=== PATIENT | male | born 1945 | race Hispanic/Latino ===

== ENCOUNTER → 2018-08-14 | Outpatient (CLI) | payer MEDICARE | END | disposition home or self-care (01) | LOC: SHCH 08:53 | PROVIDERS: ATTEND Internal Medicine Cardiovascular Disease | DX: I34.0 Nonrheumatic mitral (valve) insufficiency (principal) | CPT/HCPCS: 93306 ==

== ENCOUNTER → 2018-08-18 | Outpatient (CLI) | payer MEDICARE ==
[~2018-08-18] VITALS: Ht 167.6 cm; Wt 64.9 kg
[~2018-08-18] MED LIST: REGADENOSON 0.4 MG/5 ML PF SYG IVP SCH
== END | disposition home or self-care (01) ==
LOC: SHCH 08:02
PROVIDERS: ATTEND Internal Medicine Cardiovascular Disease
DX: R07.9 Chest pain, unspecified (principal); R06.00 Dyspnea, unspecified
CPT/HCPCS: 78452; 93017; 96374; A9500 ×2; J2785

== ENCOUNTER → 2018-11-19 | Outpatient (CLI) | payer MEDICARE ==
--- NOTE | 2018-11-19 11:00 | NUR ---
MBSS COMPLETED. SHALLOW PENETRATION WITH LARGE CUP SIP OF THIN LIQUIDS. RECOMMEND REGULAR TEXTURE, THIN LIQUIDS; PILLS WHOLE WITH LIQUIDS. RECOMMENDATIONS: 1. GI CONSULT. PLEASE CONSIDER UPPER GI SERIES Addendum: 11/19/18 at 1403 by TICO ASH, [facility] Amended: Links added.
== END | disposition home or self-care (01) ==
LOC: RAH 10:26
PROVIDERS: ATTEND Internal Medicine Gastroenterology
DX: R93.3 Abnormal findings on diagnostic imaging of other parts of digestive tract (principal); R13.12 Dysphagia, oropharyngeal phase; R63.3 Feeding difficulties
CPT/HCPCS: 74230; 92611

== ENCOUNTER → 2021-11-07 | Outpatient (CLI) | payer MEDICARE | END | disposition home or self-care (01) | LOC: RAH 09:47 | PROVIDERS: ATTEND Internal Medicine Gastroenterology | DX: R93.3 Abnormal findings on diagnostic imaging of other parts of digestive tract (principal); R13.12 Dysphagia, oropharyngeal phase | CPT/HCPCS: 74230; 92610 ==

== ENCOUNTER → 2023-03-13 | Outpatient (CLI) | payer OTHER, MEDICARE | END | disposition home or self-care (01) | LOC: RAH 07:03 | PROVIDERS: ATTEND Internal Medicine Gastroenterology | DX: R10.13 Epigastric pain (principal); R14.0 Abdominal distension (gaseous); R11.2 Nausea with vomiting, unspecified | CPT/HCPCS: 78264; A9541 ==

== ENCOUNTER → 2024-03-24 | Outpatient (CLI) | payer OTHER, MEDICARE ==
--- NOTE | 2024-03-24 16:41 | HMCIMG ---
MR SPINAL CANAL, THORAC WO CON HISTORY: Wedge compression fracture of T5 and T6 COMPARISON: None TECHNIQUE: MRI of the thoracic spine was performed utilizing multiple pulse sequences in axial, coronal and sagittal plane. Patient was not given contrast through intravenous route. FINDINGS: No abnormal signal intensity is seen of the visualized bony structure. Mild compression fracture is seen of T6 with 20% loss of height. Degenerative disc signals are present at all thoracic spine levels. The thoracic cord is of normal signal intensity without cord compression or impingement. IMPRESSION: 1. Mild compression fracture involving T6 with 20% loss of height. No bony edema is seen.
== END | disposition home or self-care (01) ==
LOC: RAH 12:32
PROVIDERS: ATTEND Internal Medicine
DX: S22.050A Wedge compression fracture of T5-T6 vertebra, initial encounter for closed fracture (principal); S22.089A Unspecified fracture of T11-T12 vertebra, initial encounter for closed fracture; M51.34 Other intervertebral disc degeneration, thoracic region; M81.0 Age-related osteoporosis without current pathological fracture; X58.XXXA Exposure to other specified factors, initial encounter; Y93.89 Activity, other specified; Y92.89 Other specified places as the place of occurrence of the external cause; Y99.8 Other external cause status
CPT/HCPCS: 72146

== ENCOUNTER 2024-09-12 18:07 | Observation (INO) | payer OTHER, MEDICARE ==
[~2024-09-12] VITALS: Ht 167.6 cm; Wt 60.9 kg
--- NOTE | 2024-09-12 18:11 | NUR ---
UA CUP PROVIDED
--- NOTE | 2024-09-12 18:16 | NUR ---
UA COLLECTED AND SENT
[2024-09-12 18:30] LABS: APPEARANCE,URINE CLEAR (CLEAR); GLUCOSE, URINE (UA) NEGATIVE (NEGATIVE); LEUKOCYTE ESTERASE ,URINE NEGATIVE Leu/uL (NEGATIVE); NITRATE,URINE 1+ (NEGATIVE); OCCULT BLOOD,URINE +- (TRACE) (NEGATIVE)
[2024-09-12 18:31] LABS: ADD UA MICROSCOPIC YES
[2024-09-12 18:39] LABS: SQUAMOUS EPITHELIAL CELL,UR RARE /HPF (0-2)
[2024-09-12 20:12] LABS: IMMATURE GRANULOCYTE ABSOLUTE 0.02 K/uL (0-1); NUCLEATED RED BLOOD CELLS 0.0 % (0.0-0.19); PLATELET COUNT (AUTO) 158 K/uL (130-400); RED BLOOD CELL COUNT(AUTO) 3.48 MIL/uL (4.00-5.50); RED CELL DISTRIBUTION WIDTH 12.8 % (11.0-15.5); WHITE BLOOD COUNT (AUTO) 4.8 K/uL (4.8-10.8)
[2024-09-12 20:33] LABS: CREATININE 0.6 mg/dL (0.5-1.0); GLOMERULAR FILTR. RATE CALC 91.0 mL/min (>90); GLUCOSE,RANDOM 93.0 mg/dL (70-105); SODIUM SERUM 140.0 mmol/L (136-145); UREA NITROGEN, BLOOD 9.0 mg/dL (7-18)
--- NOTE | 2024-09-12 21:19 | ERN ---
General Chief Complaint: Urinary Frequency Stated Complaint: SUPRAPUBIC PAIN Time Seen by MD: 18:09 Time Seen by Midlevel: 18:09 Source: patient History of Present Illness Initial Comments The patient is an 79-year-old female presenting to the emergency department for evaluation of suprapubic abdominal pain and dysuria that has been ongoing for several days. The patient is currently being treated for a urinary tract infection by her primary care doctor. She has already gone through to oral antibiotics along with fluconazole with little to no improvement. She specifically denies any fever, chills, or any other symptoms at this time. Allergies: Coded Allergies: No Known Drug Allergies (Unverified Allergy, Unknown, 08/17/18) Past Medical History Past Medical History: High Cholesterol, Hypertension, UTI Past Surgical History: Appendectomy, Hysterectomy ROS Dictation CONSTITUTIONAL: Negative except for HPI HEAD/FACE: Negative except for HPI EENT: Negative except for HPI RESPIRATORY: Negative except for HPI GASTROINTESTINAL/ABDOMINAL: Negative except for HPI GENITOURINARY: Negative except for HPI MUSCULOSKELETAL: Negative except for HPI INTEGUMENTARY: Negative except for HPI NEUROLOGICAL/PSYCH: Negative except for HPI HEMATOLOGIC/LYMPHATIC: Negative except for HPI All Systems Negative, Except as noted above. 13 point review of systems assessed and all negative except for above. Physical Exam Physical Exam Dictation Vital Signs reviewed General Appearance: Alert, oriented x 3, no acute distress, well developed, nourished. Head and Face: non-traumatic. Eyes: PERRL, pink conjunctivas, eyelid no trauma, anterior chamber with arcus senilis. Ears: Pinnas intact and no signs of trauma or erythema ear canals clear and no discharge TM no erythema Nose: No discharge, no bleeding. Oropharynx: Mouth normal, tongue pink, pharynx clear,no erythema, tonsils no exudates, no abscesses noted, mucous membrane moist Neck: Supple, non-tender, no thyromegaly, no masses, no JVD, no bruits Breast:Deferred Chest:No tenderness, no crepitus, no paradoxical movement, no retractions Lungs:Clear, well-ventilated, symmetric, no rales, no wheezing, no rhonchi, no stridor, good breath sounds bilaterally Heart: Regular rate, regular rhythm, no murmur, no gallops Vascular: no peripheral edema, Abdomen: Soft, positive bowel sounds, nondistended, no guarding, nontender, no rebound, no masses no hepatomegaly, no splenomegaly, no Hartley's sign, no hernias. Rectal: Deferred Genital: Deferred Neurological: Normal speech, motor function intact, sensory function intact Musculoskeletal: Neck nontender, full range of motion, back nontender, full range of motion, Extremities: nontender, full range of motion Skin: Color pink, dry, no turgor, no rash, no lacerations, no abrasions, no contusions. Lymphatic: Deferred Results Laboratory and Microbiology Lab and Micro Result Laboratory Tests Test 09/12/24 18:15 09/12/24 19:33 Urine Color DARK-YELLOW (YELLOW) Urine Appearance CLEAR (CLEAR) Urine pH 6.5 (5.0-8.0) Urine Specific [place] 1.010 (1.001-1.031) Urine Protein NEGATIVE mg/dL (NEGATIVE) Urine Glucose (UA) NEGATIVE mg/dL (NEGATIVE) Urine Ketones NEGATIVE mg/dL (NEGATIVE) Urine Occult Blood +- (TRACE) (NEGATIVE) H Urine Nitrate 1+ (NEGATIVE) H Urine Bilirubin 0.5 mg/dL (NEGATIVE) H Urine Urobilinogen 2.0 mg/dL (0.2-1.0) H Urine Leukocyte Esterase NEGATIVE Jeffrey/uL Urine RBC 2-5 /HPF (0-1) H Urine WBC 2-5 /HPF (0-1) H Urine Squamous Epithelial Cells RARE /HPF (0-2) Urine Bacteria None /HPF (None Seen) White Blood Count 4.8 K/uL (4.8-10.8) Red Blood Count 3.48 MIL/uL (4.00-5.50) L Hemoglobin 11.7 g/dL (12.0-16.0) L Hematocrit 32.9 % (36-48) L Mean Corpuscular Volume 94.5 fL (79-99) Mean Corpuscular Hemoglobin 33.6 pg (27.0-33.0) H Mean Corpuscular Hemoglobin Concent 35.6 g/dL (32.0-36.0) Red Cell Distribution Width 12.8 % (11.0-15.5) Platelet Count 158 K/uL (130-400) Mean Platelet Volume 10.2 fL (7.5-10.5) Immature Granulocyte % (Auto) 0.4 % (0-1) Neutrophils (%) (Auto) 66.4 % (40.0-77.0) Lymphocytes (%) (Auto) 21.7 % (21.0-51.0) Monocytes (%) (Auto) 10.7 % (3.0-13.0) Eosinophils (%) (Auto) 0.6 % (0.0-8.0) Basophils (%) (Auto) 0.2 % (0.0-5.0) Neutrophils # (Auto) 3.2 K/uL (1.8-7.7) Lymphocytes # (Auto) 1.0 K/uL (1.0-4.8) Monocytes # (Auto) 0.5 K/uL (0.1-1.0) Eosinophils # (Auto) 0.03 K/uL (0.00-0.70) Basophils # (Auto) 0.01 K/uL (0.00-0.20) Absolute Immature Granulocyte (auto 0.02 K/uL (0-1) Nucleated Red Blood Cells 0.0 % (0.0-0.19) Sodium Level 140 mmol/L (136-145) Potassium Level 3.9 mmol/L (3.5-5.1) Chloride Level 103 mmol/L (101-111) Carbon Dioxide Level 30 mmol/L (21-32) Blood Urea Nitrogen 9 mg/dL (7-18) Creatinine 0.6 mg/dL (0.5-1.0) Glomerular Filtration Rate Calc 91 mL/min (>90) Random Glucose 93 mg/dL (70-105) Lactic Acid Level 1.0 mmol/L (0.8-2.5) Total Calcium 8.8 mg/dL (8.5-10.1) Labs Reviewed?: Yes MDM MDM: Differential diagnosis: Complicated urinary tract infection, Precious infection, dysuria Rationale: Tests considered and ordered secondary to shared decision making include: Previous outside records reviewed: Old ER visits. Risk of complication and/or morbidity or mortality of patient management: None Medications-Per medication reconciliation Need for hospitalization: Patient does meet criteria for hospitalization. Need for emergency major/minor surgery: No There are no social concerns with this patient. Prescription drug management Prescriptions will include symptomatic care Patient's prior external medical records from other ER visits were reviewed by me as indicated. Prior testing and results from previous visits were reviewed. Prior tests were taken into account with medical decision making and resource utilization, independent historian/historians were used to obtain complete medical history. I independently interpreted the test that were performed, results were reviewed by me and considered findings on radiology if ordered. Medical management and examination interpretation discussions were had by me with other qualified healthcare professionals as indicated for the patient's care. ED Course Orders Procedure Category Date Status Time Urinalysis Profile LAB 09/12/24 Complete 18:09 Culture Urine CHRISTIE 09/12/24 Logged 18:31 Cbc With Differential LAB 09/12/24 Complete 19:43 Basic Metabolic Panel LAB 09/12/24 Complete 19:43 Lactic Acid LAB 09/12/24 Complete 19:43 Ceftriaxone 1g Vial PHA 09/12/24 In Process (Rocephine 1g Inj) 21:30 Ct Abdomen/Pelvis W/O CT 09/12/24 Logged Contrast 21:11 Current Medications Medications (Trade) Dose Ordered Sig/[place] Route PRN Reason Start Time Stop Time Status Last Admin Dose Admin Ceftriaxone Sodium (ROCEphine 1G INJ) 1 gm ONCE ONCE IVPB 09/12/24 21:30 09/12/24 21:31 UNV Vital Signs Date Time Temp Pulse Resp B/P (MAP) Pulse Ox O2 Delivery O2 Flow Rate FiO2 09/12/24 19:19 97.5 48 16 158/68 98 Room Air* 0 21 09/12/24 18:08 97.2 72 16 154/46 98 Room Air DX & DISP Disposition: Inpatient Departure Impression: Primary Impression: Complicated urinary tract infection Condition: Stable Referrals: RENITA ESCALERA MD (PCP) I have reviewed the case, and I agree with, Diagnosis and Plan I performed the substantive portion of the visit. I have reviewed and personally made and approve the management plan that is documented in the note by myself or the ANDRÉS. I acknowledge for responsibility for the patient's management plan. KARLA UREÑA Sep 12, 2024 21:19
[2024-09-12] MEDS: 0.9%NACL 1000ML 1,000 ML IV SCH (21:28)
[2024-09-12] MEDS: ZOSYN 3.375GM +NS 50ML IV SCH (21:28)
[2024-09-12] MEDS ORDERED: VANCOMYCIN PROTOCOL PER PHARMACY IV SCH (21:30)
[2024-09-12] MEDS: VANCOMYCIN KIT 1 GM/250 ML IV.KIT IV ONE (21:42)
--- NOTE | 2024-09-12 21:48 | NUR ---
SON TO BRING HOME MEDICATIONS
--- NOTE | 2024-09-12 21:52 | NUR ---
1ST ATTEMPT TO CALL REPORT NO ANSWER AT THIS TIME
--- NOTE | 2024-09-12 22:00 | NUR ---
SPOKE WITH ADAM NURSE ON [address] RD FLOOR CURRENT PASSING MEDICATIONS WILL CALL BACK WHEN COMPLETED
--- NOTE | 2024-09-12 22:19 | NUR ---
RECEIVED REPORT FROM [facility] ED NURSE. AWAITING PATIENT ARRIVAL TO UNIT.
[2024-09-12 22:35] VITALS: BP 160/64; PULSE 48; RESP 20; TEMP 97.9
--- NOTE | 2024-09-12 22:35 | NUR ---
PATIENT ARRIVED TO UNIT VIA STRETCHER, SELF TRANSFERED TO BED. TOLERATED WELL, EDUCATED ON SAFETY PRECAUTIONS,CALL BOATENG AND PLAN OF CARE.
[2024-09-12 22:41] VITALS: O2SAT 100
[2024-09-12] MEDS ORDERED: LISI10TA24 PO (23:04)
[2024-09-12] MEDS ORDERED: ROSU10TA72 PO (23:19)
[2024-09-12] MEDS ORDERED: SUCR1TAB2 PO (23:19)
[2024-09-12] MEDS ORDERED: ESOM20VI PO (23:25)
[2024-09-12] MEDS ORDERED: PROP10TA10 PO (23:25)
--- NOTE | 2024-09-12 23:31 | HMCIMG ---
EXAM: CT Abdomen and Pelvis without IV contrast. CLINICAL HISTORY: Suprapubic abdominal pain. TECHNIQUE: Thin collimated axial CT images of the abdomen and pelvis were obtained, with sagittal and coronal reformatted images also submitted. A CT scan is done according to ALARA (As Low As Reasonably Achievable). CONTRAST: None. COMPARISON: None. FINDINGS: Unremarkable visualized lung parenchyma. No focal abnormality within the liver, gallbladder, pancreas, spleen, adrenals, or kidneys. Mild large bowel diverticulosis with no acute diverticulitis. Large bowel loops are filled with fecal matter, a component of constipation. There is no obvious bowel wall thickening. Bowel loops are normal in caliber without evidence of obstruction or ileus. No acute appendicitis. There is no abnormality within the urinary bladder. Status post hysterectomy. The bilateral ovaries are not visualized, likely surgically absent. No lymphadenopathy. No free fluid. Mild calcific atherosclerotic disease in the abdominal aorta and its branches. Small left inguinal hernia containing fat. There is no acute osseous abnormality. Multilevel thoracolumbar spondylosis. IMPRESSIONS: No acute process in the abdomen or pelvis. Mild large bowel diverticulosis with no acute diverticulitis. Large bowel loops are filled with fecal matter, a component of constipation. Small left inguinal hernia containing fat. Multilevel thoracolumbar spondylosis. /Gabi
[2024-09-12] MEDS ORDERED: LEVO88CA5 PO (23:32)
[2024-09-12] MEDS ORDERED: FLUO20TA29 PO (23:32)
[2024-09-12] MEDS ORDERED: QUET25TA36 PO (23:32)
[2024-09-12] MEDS ORDERED: ALPR-409 PO (23:32)
[2024-09-12] MEDS ORDERED: PHEN-948 PO (23:40)
[2024-09-12] MEDS ORDERED: PRIM50TA23 PO (23:40)
--- NOTE | 2024-09-12 23:48 | NUR ---
PATIENT WITH HR OF 40-46 BPM AT REST, NOTIFIED DR.MOVVA WARD FOR . NEW ORDER OBTAINED FOR TELEMONITORING AND RESUME HOME MEDICATIONS.
[2024-09-13] MEDS ORDERED: PHENAZOpyridine HCL 200 MG TAB 200 MG TABLET PO PRN
[2024-09-13] MEDS: LISINOPRIL 10 MG TABLET PO SCH (00:05)
[2024-09-13 04:00] VITALS: BP 138/57; PULSE 48; RESP 20; TEMP 98
[2024-09-13 04:51] LABS: IMMATURE GRANULOCYTE ABSOLUTE 0.02 K/uL (0-1); NUCLEATED RED BLOOD CELLS 0.0 % (0.0-0.19); PLATELET COUNT (AUTO) 125 K/uL (130-400); RED BLOOD CELL COUNT(AUTO) 3.27 MIL/uL (4.00-5.50); RED CELL DISTRIBUTION WIDTH 12.6 % (11.0-15.5); WHITE BLOOD COUNT (AUTO) 3.8 K/uL (4.8-10.8)
[2024-09-13 05:12] LABS: CREATININE 0.6 mg/dL (0.5-1.0); GLOMERULAR FILTR. RATE CALC 91.0 mL/min (>90); GLUCOSE,RANDOM 90.0 mg/dL (70-105); SODIUM SERUM 143.0 mmol/L (136-145); UREA NITROGEN, BLOOD 6.0 mg/dL (7-18)
[2024-09-13 07:43] VITALS: BP 144/63; PULSE 50; RESP 17; TEMP 97.7
[2024-09-13 08:00] VITALS: O2SAT 98
[2024-09-13] MEDS: SUCRALFATE 1 GM TABLET PO SCH (08:26)
[2024-09-13] MEDS: VANCOMYCIN 1G/250ML KIT 250 ML IV SCH (09:38)
[2024-09-13 12:00] VITALS: BP 135/71; PULSE 50; RESP 18; TEMP 97.5
--- NOTE | 2024-09-13 14:19 | NUR ---
DCP: HOME Pt currently lives alone in her home. Pt states that at home she has a walker, bedside commode, and cane. Pt does not have home health or provider services. Pt states that she has been able to complete ADL independently. PCP is Dr. Rawls and uses [facility] for any RX needs. At DC pt will want to go home and family can assist with transportation. Addendum: 09/13/24 at 1421 by KARELY MURO SS Amended: Links added.
[2024-09-13 16:00] VITALS: BP 154/62; PULSE 48; RESP 18; TEMP 97.7
--- NOTE | 2024-09-13 17:06 | CONS ---
[facility] CARDIOLOGY CONSULTATION NOTE Date Patient Seen: Sep 13, 2024 Time of Visit: 17:01 Reason for Consultation: [Bradycardia ] History of Present Illness: [79-year-old female patient the previously followed [facility] with Dr. Rodriguez with a past medical history of hypertension, hyperlipidemia, recurrent UTIs, who presents to emergency department endorsing suprapubic abdominal pain dysuria, the patient being treated currently for UTI by her primary care physician. Creatinine 0.6, potassium 4.1, on admission presenting heart rate averaging 40-50s, review of current telemetry sinus rhythm with bradycardia in the 50s, no events overnight. Upon our assessment the patient denies any chest pain, palpitations, dyspnea or any other anginal equivalents. The patient has a prior 2D echocardiogram from 2020 with the ejection fraction of 60%, with no wall motion valvular management at this time we will recommend avoiding AV alvaro blocking agents. Cardiology was consulted for bradycardia] Past Medical History: [ Refer to chart] Past Surgical History: [ Refer to HPI] Family History: [Refer to HPI ] Social History: [Refer to HPI ] Habits: [Never] smoker. [Denies] alcohol consumption. [Denies] illicit drug use Review of Systems: A review of12 point systems was negative set per HPI Physical Examination: GENERAL: [No acute distress.] HEAD: [Normal with no signs of head trauma.] EYES: [PERRLA, EOMI, conjunctiva and sclera normal.] ENT: [Hearing grossly intact, normal oropharynx.] NECK: [Supple without JVD. There is no tenderness, lymphadenopathy, or masses. No thyromegaly. Normal carotid upstrokes without bruits.] LUNGS: [Clear breath sounds bilaterally. No wheezes, or rhonchi.] HEART: Bradycardic Normal S1 and S2 without mumurs, gallop or rub.] VASC: [Peripheral pulses +2 bilaterally.] ABD: [Bowel sounds normal, soft, nontender, no masses, no organomegaly. No audible bruits.] : [Not examined] LYMPH: [No lymphadenopathy noted.] EXT: [No clubbing, cyanosis or edema.] SKIN: [No rashes or lesions noted.] NEURO: [Awake, alert, and oriented x3. No focal sensory or strength deficits noted.] Vital Signs (last 8hr) Date Time Temp Pulse Resp B/P (MAP) Pulse Ox O2 Delivery O2 Flow Rate FiO2 09/13/24 16:00 97.7 48 18 154/62 98 Room Air 21 09/13/24 12:00 97.5 50 18 135/71 98 Room Air 21 Laboratory: [ ] Hematology Labs: Test 09/13/24 04:26 Range/Units White Blood Count 3.8 L 4.8-10.8 K/uL Red Blood Count 3.27 L 4.00-5.50 MIL/uL Hemoglobin 11.0 L 12.0-16.0 g/dL Hematocrit 31.2 L 36-48 % Mean Corpuscular Volume 95.4 79-99 fL Mean Corpuscular Hemoglobin 33.6 H 27.0-33.0 pg Mean Corpuscular Hemoglobin Concent 35.3 32.0-36.0 g/dL Red Cell Distribution Width 12.6 11.0-15.5 % Platelet Count 125 L 130-400 K/uL Mean Platelet Volume 10.0 7.5-10.5 fL Immature Granulocyte % (Auto) 0.5 0-1 % Neutrophils (%) (Auto) 56.8 40.0-77.0 % Lymphocytes (%) (Auto) 27.9 21.0-51.0 % Monocytes (%) (Auto) 13.2 H 3.0-13.0 % Eosinophils (%) (Auto) 1.3 0.0-8.0 % Basophils (%) (Auto) 0.3 0.0-5.0 % Neutrophils # (Auto) 2.2 1.8-7.7 K/uL Lymphocytes # (Auto) 1.1 1.0-4.8 K/uL Monocytes # (Auto) 0.5 0.1-1.0 K/uL Eosinophils # (Auto) 0.05 0.00-0.70 K/uL Basophils # (Auto) 0.01 0.00-0.20 K/uL Absolute Immature Granulocyte (auto 0.02 0-1 K/uL Nucleated Red Blood Cells 0.0 0.0-0.19 % Chemistry Labs: Test 09/13/24 04:26 09/12/24 19:33 Range/Units Sodium Level 143 136-145 mmol/L Potassium Level 4.1 3.5-5.1 mmol/L Chloride Level 109 101-111 mmol/L Carbon Dioxide Level 28 21-32 mmol/L Blood Urea Nitrogen 6 L 7-18 mg/dL Creatinine 0.6 0.5-1.0 mg/dL Glomerular Filtration Rate Calc 91 >90 mL/min Random Glucose 90 70-105 mg/dL Total Calcium 8.9 8.5-10.1 mg/dL Magnesium Level 1.90 1.80-2.40 mg/dL Lactic Acid Level 1.0 0.8-2.5 mmol/L Diagnostics / Radiology: [Copy/Paste Echos/Imaging Report here] Assessment: [Hypertension Hyperlipidemia ] Plan: [#asymptomatic bradycardia The patient presented to the emergency department endorsing abdominal pain suprapubic, dysuria History of recurrent UTIs currently under antibiotic treatment per primary care physician Initial assessment showed a heart rate in 40-50s, review of telemetry sinus bradycardia in the 50s Prior 2D echo 2020 EF 60%, no wall motion or valvular abnormalities Currently the patient denies any cardiac symptoms or anginal equivalents Recommend avoiding beta-blockers or any other alvaro blocking agents at the moment We will plan for an outpatient event monitor once her UTI has a resolved. Thank you for this consult cardiology will sign off at this time the patient will follow up in clinic 1-2 weeks after discharge Dylan robin MD] ATTESTATION BY PHYSICIAN I have seen and examined the patient, reviewed the above documentation, participated in medical decision making, made necessary modifications, and agree with the treatment plan as documented by my mid-level provider above. MD MANOJ Womack JAMES R MD Sep 13, 2024 17:05
--- NOTE | 2024-09-13 18:09 | NUR ---
PATIENT DISCHARGED. IV REMOVED INTACT. TELEMONITOR REMOVED. ALL BELONGINGS GATHERED AND TAKEN BY PATIENT. ALL QUESTIONS AND CONCERNS ANSWERED. PATIENT TAKEN DOWN VIA WHEELCHAIR ALERT AND ORIENTED X 4.
--- NOTE | 2024-09-13 19:43 | HP ---
ADMITTING HISTORY AND PHYSICAL CHIEF COMPLAINT: Lower abdominal pain, recurrent urinary tract infection, failed outpatient treatment. HISTORY OF PRESENT ILLNESS: An 79-year-old female who was brought to the Emergency Room with history of lower abdominal pain and the patient has multiple urinary tract infections. The patient was treated with multiple antibiotics as an outpatient x 4 at least and the patient has significant symptoms and the patient still has urinary symptoms. The patient was hospitalized with acute urinary tract infection with IV antibiotics and urine cultures. The patient has some nausea, which is improved. The patient denies any fever or chills at this time. PAST MEDICAL HISTORY: Significant for hypertension, hyperlipidemia, urinary tract infection. MEDICATIONS: Not available at this time. ALLERGIES: None. PAST SURGICAL HISTORY: Hysterectomy and appendectomy. SOCIAL HISTORY: Denies history of smoking, alcohol or substances. FAMILY HISTORY: Noncontributory. REVIEW OF SYSTEMS: HEENT: Negative. CARDIOVASCULAR SYSTEM: Denies chest pain. RESPIRATORY SYSTEMS: Denies shortness of breath. GASTROINTESTINAL: Nausea, lower abdominal pain. GENITOURINARY SYSTEM: Urinary complaints. MUSCULOSKELETAL SYSTEM: No joint pains. PHYSICAL EXAMINATION: GENERAL: The patient is awake, alert, and oriented to person, place and time. HEENT: Pupil equal. Mucous membranes appears to be dry. NECK: Supple. LUNGS: Mostly decreased breath sounds. No wheezes, no rhonchi. HEART: Regular rate and rhythm. ABDOMEN: Soft and nontender. NEUROLOGICAL: No focal deficits. LABORATORY DATA: Urinalysis shows nitrates positive. Leukocyte esterase is negative. RBC 2 to 5, WBC 2 to 5, creatinine 0.6, sodium is 140, potassium 3.9, lactic acid level 1.0. ASSESSMENT AND PLAN: Lower abdominal pain, urinary tract infection, which is a recurrent nature. The patient is going to get CT of the abdomen and pelvis to see any localized focus for her recurrent urinary infection. Labs are stable at this time. Hypertension is stable. Hyperlipidemia is stable. Continue with present care. TID: [id number] RECEIPT: [id number]
--- NOTE | 2024-09-13 21:42 | DS ---
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 SERVICER(S): [cardiology] PROCEDURE(S)/TREATMENT(S): [] PROBLEM(S): [] FOLLOW-UP TEST(S): [f/u w urology] DISCHARGE INSTRUCTIONS: [f/u w pcp in 1-2 days] Home Meds Reported Medications Primidone (Mysoline) 50 Mg Tablet, 50 MG PO DAILY 09/12/24 Phenazopyridine HCl (Phenazopyridine HCl) 200 Mg Tablet, 1 TAB PO TID PRN for PAIN 09/12/24 Quetiapine Fumarate (Quetiapine Fumarate) 25 Mg Tablet, 1 TAB PO HS for 30 Days, #30 TAB 0 Refills 09/12/24 Levothyroxine Sodium (Levothyroxine) 88 Mcg Capsule, 1 CAP PO DAILY for 30 Days, #30 CAP 0 Refills 09/12/24 Alprazolam (Alprazolam) 0.25 Mg Tab.rapdis, 0.25 MG PO BID PRN for ANXIETY, TAB 09/12/24 Fluoxetine HCl (Fluoxetine HCl) 20 Mg Tablet, 1 TAB PO DAILY for 30 Days, #30 TAB 0 Refills 09/12/24 Propranolol HCl (Propranolol HCl) 10 Mg Tablet, 1 TAB PO BID PRN for ANXIETY for 30 Days, #60 TAB 0 Refills 09/12/24 Esomeprazole Sodium (Esomeprazole Sodium) 20 Mg Vial, 20 MG PO DAILY, VIAL 09/12/24 Sucralfate (Sucralfate) 1 Gram Tablet, 1 TAB PO TID for 30 Days, #90 TAB 0 Refills 09/12/24 Rosuvastatin Calcium (Rosuvastatin Calcium) 10 Mg Tablet, 1 TAB PO HS for 30 Days, #30 TAB 0 Refills 09/12/24 Lisinopril (Lisinopril) 10 Mg Tablet, 10 MG PO DAILY, TAB 09/12/24 RENITA ESCALERA MD Sep 13, 2024 21:42
--- NOTE | 2024-09-14 00:35 | PN ---
SUBJECTIVE: The patient denies any chest pain, abdominal pain, nausea or vomiting. At this time, the patient ____ antibiotics pending a CT scan. OBJECTIVE: VITAL SIGNS: Blood pressure 120/60, pulse 60, respirations 14. LUNGS: Mostly decreased breath sounds. No wheezes or rhonchi. HEART: Regular rate and rhythm. ABDOMEN: Soft, nontender. ASSESSMENT AND PLAN: * Lower abdominal pain, which appears to be resolved. * Urinary tract infection, stable. * Pending a CT scan report. * Hypertension, stable and patient's care will be transferred to Dr. Rawls. TID: [id number] RECEIPT: [id number]
== END 2024-09-13 18:27 | disposition home or self-care (01) ==
LOC: EDSEX 18:07 → EDH 18:07 → EDHIP 21:13 → 3AH 22:35
PROVIDERS: ADMIT Family Medicine; ATTEND Family Medicine
DX: N39.0 Urinary tract infection, site not specified (principal); R10.2 Pelvic and perineal pain; R00.1 Bradycardia, unspecified; R11.0 Nausea; E78.00 Pure hypercholesterolemia, unspecified; F19.90 Other psychoactive substance use, unspecified, uncomplicated; I10 Essential (primary) hypertension; Z90.49 Acquired absence of other specified parts of digestive tract; Z90.710 Acquired absence of both cervix and uterus; Z79.899 Other long term (current) drug therapy
CPT/HCPCS: 96376; 96365; 96375; 99285; 80048 ×2; 85025 ×2; 87040 ×2; 87086; 83605; 81001; 36415 ×2; 74176; 96366; 96367; 83735; J7030; J0696; J2543 ×3; J3373 ×2; G0378 ×11

== ENCOUNTER → 2024-12-17 | Outpatient (CLI) | payer OTHER, MEDICARE ==
[~2024-12-17] MED LIST changes: +ALPR-409 PO; +ESOM20VI PO; +FLUO20TA29 PO; +LEVO88CA5 PO; +LISI10TA24 PO; +PHEN-948 PO; +PRIM50TA23 PO; +PROP10TA10 PO; +QUET25TA36 PO; -REGADENOSON 0.4 MG/5 ML PF SYG IVP SCH; +ROSU10TA98 PO; +SUCR1TAB2 PO
--- NOTE | 2024-12-18 08:13 | HMCIMG ---
EXAM: Ultrasound Retroperitoneum ??? Renal CLINICAL HISTORY: Other microscopic hematuria TECHNIQUE: Real-time ultrasound of the retroperitoneum with image documentation. COMPARISON: CT ??? 09/22/24 FINDINGS: RIGHT KIDNEY: Measures 10.3 ??? 4.0 ??? 4.7 cm. Normal cortical echogenicity and corticomedullary differentiation. No calculus, cyst, or hydronephrosis. LEFT KIDNEY: Measures 10.3 ??? 5.5 ??? 5.6 cm. Normal cortical echogenicity and corticomedullary differentiation. No calculus, cyst, or hydronephrosis. URINARY BLADDER: Pre-void volume: 222 cm???. Post-void residual: 19 cm??? (adequate emptying). Bladder wall appears smooth; no mural thickening or intraluminal lesion. MISCELLANEOUS: No free fluid or retroperitoneal mass seen. IMPRESSION: * Normal renal ultrasound. No evidence of calculus, mass, or hydronephrosis. * Normal urinary bladder with satisfactory post-void emptying. * No interval change compared to CT dated 09/22/24. /Gabi
== END | disposition home or self-care (01) ==
LOC: RAH 09:47
PROVIDERS: ATTEND Urology
DX: R31.29 Other microscopic hematuria (principal)
CPT/HCPCS: 76770